=== PATIENT | female | born 1985 | race Two or more races ===

== ENCOUNTER 2020-08-01 03:51 | Emergency (ER) | payer OTHER ==
[~2020-08-01] VITALS: Ht 162.6 cm; Wt 59.0 kg
== END 2020-08-01 09:56 | disposition home or self-care (01) ==
LOC: ER 03:51
DX: R53.1 Weakness (principal); E86.0 Dehydration; Z20.822 Contact with and (suspected) exposure to COVID-19

== ENCOUNTER 2022-08-30 13:32 | Outpatient (CLI) | payer OTHER | END 2022-08-30 13:34 | disposition home or self-care (01) | LOC: NUCLEAR 13:32 | PROVIDERS: ATTEND Obstetrics & Gynecology | DX: M81.0 Age-related osteoporosis without current pathological fracture (principal) ==

== ENCOUNTER 2022-09-06 10:49 | Outpatient (CLI) | payer OTHER | END 2022-09-06 10:59 | disposition home or self-care (01) | LOC: SONOGRAMA 10:49 | PROVIDERS: ATTEND Obstetrics & Gynecology | DX: R10.2 Pelvic and perineal pain (principal) ==